=== PATIENT | female | born 1980 ===

== ENCOUNTER 2018-06-29 20:54 | Emergency (ER) | payer OTHER ==
[2018-06-29 21:05] VITALS: O2SAT 97
[2018-06-29] MEDS ORDERED: Sodium Chloride 0.9% 1,000 ML IV STA (22:06)
--- NOTE | 2018-06-29 22:07 | ED PDOC ---
HPI: General Adult <Clari Muir - Last Filed: 06/30/18 14:47> Chief Complaint (Provider): Chest Pain History Per: Patient Onset/Duration Of Symptoms: Days (since 06/17/18) Current Symptoms Are (Timing): Still Present Additional Complaint(s): 38 year old female with no past medical history presents to the ED with intermittent mid-sternal chest tightness since 06/17/18. Patient states tightness is worse at night and lasts a couple of minutes. She states she feels numbness in both hands, generalized weakness, and dizziness. Patient denies fever, cough, leg swelling, recent travel, or OCP use. PMD: Hitesh Hampton <Tahira Hansen Naveen - Last Filed: 06/30/18 17:27> Time Seen by Provider: 06/29/18 21:13 Chief Complaint (Nursing): Chest Pain Past Medical History Vital Signs: Last Vital Signs Temp 97.9 F 06/30/18 00:23 Pulse 76 06/30/18 00:23 Resp 15 06/30/18 00:23 BP 135/74 06/30/18 00:23 Pulse Ox 97 06/30/18 00:23 <Clari Muir - Last Filed: 06/30/18 14:47> Reviewed: Historical Data, Nursing Documentation, Vital Signs Vital Signs: Last Vital Signs Temp 97.8 F 06/29/18 21:02 Pulse 80 06/29/18 21:02 Resp 18 06/29/18 21:02 BP 149/80 06/29/18 21:02 Pulse Ox 97 06/29/18 21:02 Primary Care Provider: Hitesh Hampton - Medical History PMH: No Chronic Diseases - Family History Family History: States: Unknown Family Hx - Social History Current smoker - smoking cessation education provided: No Ex-Smoker (has not smoked in the last 12 months): No Alcohol: None <Tahira Hansen Naveen - Last Filed: 06/30/18 17:27> - Home Medications Home Medications: Ambulatory Orders Medication Instructions Recorded Famotidine [Pepcid] 20 mg PO BID #20 tab 06/29/18 - Allergies Allergies/Adverse Reactions: Allergies Allergy/AdvReac Type Severity Reaction Status Date / Time No Known Allergies Allergy Verified 06/29/18 22:05 Review of Systems ROS Statement: Except As Marked, All Systems Reviewed And Found Negative Cardiovascular: Positive for: Other (chest tighness) Respiratory: Negative for: Cough Musculoskeletal: Positive for: Other (no leg swelling) Neurological: Positive for: Weakness (generalized), Numbness (in both hands), Dizziness <HansenTahira davila F - Last Filed: 06/30/18 17:27> Physical Exam - Reviewed Nursing Documentation Reviewed: Yes Vital Signs Reviewed: Yes - Physical Exam Appears: Positive for: Non-toxic, No Acute Distress Head Exam: Positive for: ATRAUMATIC, NORMOCEPHALIC Skin: Positive for: Normal Color, Warm, Dry Eye Exam: Positive for: EOMI, Normal appearance, PERRL Cardiovascular/Chest: Positive for: Regular Rate, Rhythm. Negative for: Murmur Respiratory: Positive for: Normal Breath Sounds. Negative for: Respiratory Distress Gastrointestinal/Abdominal: Positive for: Normal Exam, Soft. Negative for: Tenderness Back: Positive for: Normal Inspection. Negative for: L CVA Tenderness, R CVA Tenderness Extremity: Positive for: Normal ROM (upper and lower). Negative for: Pedal Edema, Deformity Neurological/Psych: Positive for: Awake, Alert, Oriented (x3) <Tahira Hansen F - Last Filed: 06/30/18 17:27> - Laboratory Results Result Diagrams: 06/29/18 22:31 06/29/18 22:31 Lab Results: PT 12.4 Seconds (9.8-13.1) 06/29/18 22:31 INR 1.1 06/29/18 22:31 APTT 31.4 Seconds (25.6-37.1) 06/29/18 22:31 D-Dimer, Quantitative < 200 ng/mlDDU (0-230) 06/29/18 22:31 Troponin I < 0.0120 ng/mL (0.00-0.120) 06/29/18 22:31 Total Bilirubin 0.4 mg/dl (0.2-1.3) 06/29/18 22:31 AST 30 U/L (14-36) 06/29/18 22:31 ALT 34 U/L (9-52) 06/29/18 22:31 Alkaline Phosphatase 63 U/L (38-126) 06/29/18 22:31 Total Protein 7.4 G/DL (6.3-8.2) 06/29/18 22: Albumin 4.3 g/dL (3.5-5.0) 06/29/18 22: Globulin 3.1 gm/dL (2.2-3.9) 06/29/18 22: Albumin/Globulin Ratio 1.4 (1.0-2.1) 06/29/18 22: Urine Color Yellow (YELLOW) 06/29/18 22: Urine Clarity Slighty-cloudy (Clear) 06/29/18 22: Urine pH 7.0 (5.0-8.0) 06/29/18 22: Ur Specific [place] 1.018 (1.003-1.030) 06/29/18 22: Urine Protein Negative mg/dL (NEGATIVE) 06/29/18 22: Urine Glucose (UA) Neg mg/dL (NEGATIVE) 06/29/18 22: Urine Ketones Negative mg/dL (NEGATIVE) 06/29/18 22: Urine Blood Moderate (NEGATIVE) 06/29/18 22: Urine Nitrate Negative (NEGATIVE) 06/29/18 22: Urine Bilirubin Negative (NEGATIVE) 06/29/18 22: Urine Urobilinogen 0.2-1.0 mg/dL (0.2-1.0) 06/29/18 22:31 Ur Leukocyte Esterase Neg Mare/uL (Negative) 06/29/18 22:31 Urine Microscopic WBC 2 /hpf (0-5) 06/29/18 22:31 Ur Squamous Epith Cells 14 /hpf (0-5) H 06/29/18 22:31 Urine Bacteria Rare (<OCC) 06/29/18 22:31 <Clari Muir - Last Filed: 06/30/18 14:47> - Laboratory Results Result Diagrams: 06/29/18 22:31 06/29/18 22:31 - ECG Interpretation Of ECG: NSR @ 75, no ST-T changes. O2 Sat by Pulse Oximetry: 97 (RA) Pulse Ox Interpretation: Normal - Radiology X-Ray: Interpreted by Ms X-Ray Interpretation: No Acute Disease <Tahira Hansen - Last Filed: 06/30/18 17:27> Medical Decision Making Medical Decision Making: Time: 2205 Plan: --CT Head w/o contrast --EKG --CMP --Troponin --u preg --u dip --CBC --D Dimer --PTT --PT/INR --CXR --IV fluids --UA 2306 CT Head w/o contrast FINDINGS: BRAIN: No acute intraparenchymal hemorrhage. No mass lesion. No CT evidence for acute territorial infarct. No midline shift or extra-axial collections. VENTRICLES: No hydrocephalus. ORBITS: The orbits are unremarkable. SINUSES AND MASTOIDS: The paranasal sinuses and mastoid air cells are clear. BONES: No fracture. SOFT TISSUES: Unremarkable. IMPRESSION: No acute intracranial abnormality. Scribe Attestation: Documented by Yady Ambrose, acting as a scribe for Tahira Hansen MD. Provider Scribe Attestation: All medical record entries made by the Scribe were at my direction and personally dictated by me. I have reviewed the chart and agree that the record accurately reflects my personal performance of the history, physical exam, medical decision making, and the department course for this patient. I have also personally directed, reviewed, and agree with the discharge instructions and disposition. <Tahira Hansen - Last Filed: 06/30/18 17:27> Disposition <Clari Muir - Last Filed: 06/30/18 14:47> - Disposition Disposition: Routine/Home Disposition Time: 23:00 <Tahira Hansen - Last Filed: 06/30/18 17:27> - Clinical Impression Clinical Impression: Chest pain - Disposition Condition: IMPROVED Additional Instructions: FOLLOW-UP WITH PMD WITHIN 2 DAYS FOR REEVALUATION. Prescriptions: Famotidine [Pepcid] 20 mg PO BID #20 tab Instructions: Chest Pain Forms: Yoovi (Nepalese) Addendum Addendum: 06/30/18 14:47 Spoke to patient, patient will return to ED for evaluation of possible cytotoxic vs vasogenic etiology found on final CT report. Patient states she still feeling weak. Dr. hansen aware patient called back. <Clari Muir - Last Filed: 06/30/18 14:47>
[2018-06-29 22:38] LABS: BASO # 0.1 K/uL (0.0-0.2); BASO % 0.9 % (0.0-2.0); EOS # 0.2 K/uL (0.0-0.7); EOS % 2.5 % (0.0-4.0); HEMOGLOBIN 13.1 g/dL (12.0-16.0); LYMPH # 3.3 K/uL (1.0-4.3); LYMPH % 41.1 % (20.0-40.0); MEAN CELL VOLUME 91.1 fl (81.0-99.0); MEAN CORPUSCULAR HEMOGLOBIN 30.7 pg (27.0-31.0); MEAN CORPUSCULAR HGB CONC 33.7 g/dL (33.0-37.0); MEAN PLATELET VOLUME 9.2 fl (7.2-11.7); MONO # 0.6 K/uL (0.0-0.8); NEUT # 3.9 K/uL (1.8-7.0); NEUT % 48.5 % (50.0-75.0); RBC 4.26 Mil/uL (3.80-5.20); RED CELL DISTRIBUTION WIDTH 12.9 % (11.5-14.5)
[2018-06-29 22:39] LABS: SQUAMOUS EPITHIAL 14 /hpf (0-5); URINE BACTERIA RARE (<OCC); URINE BILIRUBIN NEGATIVE (NEGATIVE); URINE BLOOD MODERATE (NEGATIVE); URINE CLARITY SLIGHTY-CLOUDY (Clear); URINE COLOR YELLOW (YELLOW); URINE GLUCOSE (UA) NEG (NEGATIVE); URINE LEUKOCYTE ESTERASE NEG Leu/uL (Negative); URINE PROTEIN NEGATIVE (NEGATIVE); URINE UROBILINOGEN 0.2-1.0 mg/dL (0.2-1.0)
[2018-06-29 22:42] LABS: INR 1.1; PROTHROMBIN TIME 12.4 Seconds (9.8-13.1)
[2018-06-29 22:45] LABS: PARTIAL THROMBOPLASTIN TIME 31.4 Seconds (25.6-37.1)
[2018-06-29 22:49] LABS: ALB/GLOB RATIO 1.4 (1.0-2.1); ALBUMIN 4.3 g/dL (3.5-5.0); ALT/SGPT 34 U/L (9-52); AST/SGOT 30 U/L (14-36); BLOOD UREA NITROGEN 10 mg/dl (7-17); CALCIUM 8.8 mg/dL (8.4-10.2); GFR NON-AFRICAN AMERICAN > 60
[2018-06-29 22:53] LABS: D DIMER < 200 ng/mlDDU (0-230)
[2018-06-30 00:24] VITALS: BP 135/74; PULSE 76; RESP 15; TEMP 97.9
--- NOTE | 2018-06-30 09:01 | RAD ---
Date of service: 06/29/2018 HISTORY: CP COMPARISON: No prior. TECHNIQUE: Chest PA and lateral views FINDINGS: LUNGS: No active pulmonary disease. PLEURA: No significant pleural effusion identified. No pneumothorax apparent. CARDIOVASCULAR: No aortic atherosclerotic calcification present. Normal cardiac size. No pulmonary vascular congestion. OSSEOUS STRUCTURES: No significant abnormalities. VISUALIZED UPPER ABDOMEN: Normal. OTHER FINDINGS: None. IMPRESSION: No acute cardiopulmonary disease appreciated.
--- NOTE | 2018-06-30 11:44 | CT ---
Date of service: 06/29/2018 PROCEDURE: CT HEAD WITHOUT CONTRAST. HISTORY: Dizziness COMPARISON: None available. TECHNIQUE: Axial computed tomography images were obtained through the head/brain without intravenous contrast. Radiation dose: Total exam DLP = 797.2 mGy-cm. This CT exam was performed using one or more of the following dose reduction techniques: Automated exposure control, adjustment of the mA and/or kV according to patient size, and/or use of iterative reconstruction technique. FINDINGS: HEMORRHAGE: No intracranial hemorrhage. BRAIN: There is a lucent region at the right cerebellar hemisphere laterally measuring 1.4 x 2.0 cm without local mass effect or hemorrhage related. No additional brain parenchymal signal abnormality is appreciated. Follow-up brain MRI with and without contrast is advised for added characterization. It is unclear whether this is cytotoxic or vasogenic which generally separates differential diagnosis of ischemia versus neoplasm or infection. VENTRICLES: Unremarkable. No hydrocephalus. CALVARIUM: Unremarkable. PARANASAL SINUSES: Unremarkable as visualized. No significant inflammatory changes. MASTOID AIR CELLS: Unremarkable as visualized. No inflammatory changes. OTHER FINDINGS: None. IMPRESSION: 2.0 cm lucency right cerebral hemisphere is identified laterally which is indeterminate for cytotoxic versus vasogenic etiologies and follow-up brain MRI is advised with and without contrast for added characterization. Discordant preliminary report from [facility] report which does not describe this finding dated 06/29/2018, 11:06 p.m.. Findings discussed with Nurse Practitioner Wood with written down and read back verification 06/30/2018, 11:38 a.m..
--- NOTE | 2018-07-01 11:26 | CARD ---
APPROVED REPORT Date of service: 06/30/2018 EKG Measurement Heart [id number] <Conclusion> Sinus rhythm with 1st degree AV block Otherwise normal ECG
== END 2018-06-30 00:23 | disposition home or self-care (01) ==
LOC: H.ER 20:54
DX: R07.89 Other chest pain (principal)
CPT/HCPCS: 70450; 71046; 80053; 81003; 81025; 84484; 85025; 85378; 85610; 85730; 93005; 99284; J7030

== ENCOUNTER 2018-06-30 16:22 | Emergency (ER) | payer OTHER ==
[2018-06-30 16:29] VITALS: RESP 16
[2018-06-30 16:30] VITALS: BMI 36.0
--- NOTE | 2018-06-30 17:22 | ED PDOC ---
Syncope/Near Syncope/Dizziness Time Seen by Provider: 06/30/18 16:35 Chief Complaint (Nursing): Weakness/Neurological Deficit Chief Complaint (Provider): Dizziness History Per: Patient History/Exam Limitations: no limitations Onset/Duration Of Symptoms: Days Additional Complaint(s): 38 year old female presents to ED for dizziness and chest tightness who was evaluated in this ED yesterday for same complaints. Radiology reading of CT scan today demonstrated abnormality so MRI brain or CT scan with IV contrast recommended. Patient reports felling better today but still experiences some dizziness. PMD: none provided Past Medical History Reviewed: Historical Data, Nursing Documentation, Vital Signs Vital Signs: Last Vital Signs Temp 98.5 F 06/30/18 16:29 Pulse 80 06/30/18 16:29 Resp 16 06/30/18 16:29 BP 126/63 06/30/18 16:29 Pulse Ox 98 06/30/18 16:29 Primary Care Provider: FAMILY PROVIDER,NO - Medical History PMH: No Chronic Diseases - Surgical History Surgical History: No Surg Hx - Family History Family History: States: Unknown Family Hx - Social History Current smoker - smoking cessation education provided: No Alcohol: None Drugs: Denies - Home Medications Home Medications: Ambulatory Orders Medication Instructions Recorded Famotidine [Pepcid] 20 mg PO BID #20 tab 06/29/18 Aspirin 325 mg PO DAILY tab 07/01/18 - Allergies Allergies/Adverse Reactions: Allergies Allergy/AdvReac Type Severity Reaction Status Date / Time Penicillins Allergy ITCHING Verified 07/01/18 18:44 codeine AdvReac FATIGUE Verified 07/01/18 18:44 Review of Systems Cardiovascular: Positive for: Other (chest tightness) Neurological: Positive for: Dizziness Physical Exam - Reviewed Nursing Documentation Reviewed: Yes Vital Signs Reviewed: Yes - Physical Exam Appears: Positive for: No Acute Distress Head Exam: Positive for: ATRAUMATIC, NORMAL INSPECTION, NORMOCEPHALIC Skin: Positive for: Normal Color, Warm, Dry Eye Exam: Positive for: EOMI, Normal appearance, PERRL ENT: Positive for: Normal ENT Inspection Neck: Positive for: Normal, Painless ROM, Supple Cardiovascular/Chest: Positive for: Regular Rate, Rhythm. Negative for: Murmur Respiratory: Positive for: Normal Breath Sounds. Negative for: Respiratory Distress Gastrointestinal/Abdominal: Positive for: Normal Exam, Soft. Negative for: Tenderness Back: Positive for: Normal Inspection. Negative for: L CVA Tenderness, R CVA Tenderness, Vertebral Tenderness Extremity: Positive for: Normal ROM. Negative for: Tenderness, Deformity Neurological/Psych: Positive for: Awake, Alert, Normal Tone, Oriented (x3). Negative for: Motor/Sensory Deficits - ECG O2 Sat by Pulse Oximetry: 98 (RA) Pulse Ox Interpretation: Normal Medical Decision Making Medical Decision Making: Time: 1713 Initial Impression: Initial Plan: --CT Head --Labs --EKG 1911 CT Head FINDINGS: BRAIN No acute intraparenchymal hemorrhage. No mass lesion. No abnormal enhancement. No CT evidence for acute territorial infarct. No midline shift or extra-axial collections. VENTRICLES: No hydrocephalus. ORBITS: The orbits are unremarkable. SINUSES AND MASTOIDS: The paranasal sinuses and mastoid air cells are clear. BONES: No fracture. IMPRESSION: No acute intracranial abnormality. Scribe Attestation: Documented by Good Roberto acting as a scribe for Tahira Hansen MD. Provider Scribe Attestation: All medical record entries made by the Scribe were at my direction and personally dictated by me. I have reviewed the chart and agree that the record accurately reflects my personal performance of the history, physical exam, medical decision making, and the department course for this patient. I have also personally directed, reviewed, and agree with the discharge instructions and disposition. Disposition - Clinical Impression Clinical Impression: Dizziness - Disposition Disposition: Routine/Home Disposition Time: 19:20 Condition: GOOD Additional Instructions: FOLLOW-UP WITH PMD WITHIN 2 DAYS FOR REEVALUATION. Instructions: Dizziness, Nonvertigo, (DC) Forms: [employer]listen (Maldivian)
[2018-06-30] MEDS ORDERED: Sodium Chloride 0.9% 50 ML IV ONE (17:54)
[2018-06-30] MEDS ORDERED: Iohexol 300 100 ML IJ ONE (17:54)
[2018-06-30 19:52] VITALS: BP 137/82; PULSE 73; TEMP 98.2
--- NOTE | 2018-07-01 10:19 | CT ---
Date of service: 06/30/2018 PROCEDURE: CT HEAD WITH CONTRAST HISTORY: Abnormal CT head without contrast COMPARISON: None available. TECHNIQUE: Axial computed tomography images were obtained through the head/brain with intravenous contrast. Contrast dose: Omnipaque 300, 95 cc Radiation dose: Total exam DLP = 887.92 mGy-cm. This CT exam was performed using one or more of the following dose reduction techniques: Automated exposure control, adjustment of the mA and/or kV according to patient size, and/or use of iterative reconstruction technique. FINDINGS: HEMORRHAGE: No intracranial hemorrhage. BRAIN: The prior lucency is reiterated at the upper right cerebellum laterally, measuring 1.9 x 1.5 x 1.8 cm (transverse x anteroposterior x superoinferior dimensions). No definitive enhancement is seen within this lucency although vessels at the right side of the tentorium enhanced immediately cephalad to it. Again, no mass effect is exerted and this may reflect an the low-density primary brain tumor though an infectious or inflammatory etiology is not excluded. Infarction is difficult to exclude as well on an acute or subacute basis. Follow-up brain MRI is advised when feasible. No definite abnormal intracranial enhancement appreciated. VENTRICLES: Unremarkable. No hydrocephalus. CALVARIUM: Unremarkable. PARANASAL SINUSES: Unremarkable as visualized. No significant inflammatory changes. MASTOID AIR CELLS: Unremarkable as visualized. No mastoid effusion. OTHER FINDINGS: None. IMPRESSION: Nonenhancing but persistent low-density lesion at the right cerebellum is stable at 1.9 cm greatest dimension. Differential diagnosis is discussed above and is broad and includes both vasogenic and cytotoxic etiologies and follow-up brain MRI with and without contrast is advised when feasible. Discordant with preliminary report from [facility] which does not describe lesion. Preliminary report provided by [facility], 06/30/2018, 7:12 p.m.. Findings discussed with CRISTELA Mo with written down and read back verification 07/01/2018, 10:10 a.m..
--- NOTE | 2018-07-01 11:28 | CARD ---
APPROVED REPORT Date of service: 06/29/2018 EKG Measurement Heart [id number] <Conclusion> Normal sinus rhythm Normal ECG
[2018-07-02 08:35] VITALS: O2SAT 98
== END 2018-06-30 19:44 | disposition home or self-care (01) ==
LOC: H.ER 16:22
DX: R42 Dizziness and giddiness (principal)
CPT/HCPCS: 70460; 81025; 84484; 93005; 99285; Q9967

== ENCOUNTER 2018-07-01 12:40 | Observation (INO) | payer OTHER ==
[2018-07-01 12:44] VITALS: BMI 35.6
[2018-07-01 13:52] LABS: BASO # 0.1 K/uL (0.0-0.2); BASO % 0.6 % (0.0-2.0); EOS # 0.2 K/uL (0.0-0.7); EOS % 1.7 % (0.0-4.0); HEMOGLOBIN 13.9 g/dL (12.0-16.0); LYMPH # 2.4 K/uL (1.0-4.3); LYMPH % 25.4 % (20.0-40.0); MEAN CELL VOLUME 91.1 fl (81.0-99.0); MEAN CORPUSCULAR HEMOGLOBIN 30.5 pg (27.0-31.0); MEAN CORPUSCULAR HGB CONC 33.5 g/dL (33.0-37.0); MEAN PLATELET VOLUME 9.2 fl (7.2-11.7); MONO # 0.5 K/uL (0.0-0.8); MONO % 5.6 % (0.0-10.0); NEUT # 6.3 K/uL (1.8-7.0); NEUT % 66.7 % (50.0-75.0); RBC 4.54 Mil/uL (3.80-5.20); WHITE BLOOD COUNT 9.4 K/uL (4.8-10.8)
[2018-07-01 14:13] LABS: BLOOD UREA NITROGEN 9 mg/dl (7-17); GFR NON-AFRICAN AMERICAN > 60
--- NOTE | 2018-07-01 14:19 | ED PDOC ---
HPI: Chest Pain Time Seen by Provider: 07/01/18 12:48 Chief Complaint (Nursing): Chest Pain Chief Complaint (Provider): chest pain History Per: Patient History/Exam Limitations: no limitations Onset/Duration Of Symptoms: Days (4x) Current Symptoms Are (Timing): Still Present Severity: Moderate Additional Complaint(s): 38 year old female with no pertinent past medical history presents to the ED for an evaluation of chest pain and dizziness that has been coming and going for the past 4x days. Patient was seen in the ED 2x other times for the same complaint. Patient presented to the ED on her first visit on 06/29/2018 with complaints of chest pain and dizziness, had a cardiac workup and CT head which was normal, and was called back the next day for abnormal findings on the final read of the CT head. Patient returned to the ED on 06/30/2018 and had a second CT head with IV contrast, which was read and normal, and was called back this morning because there were abnormal findings on the final read again. Patient presents to the ED today for a possible MRI (brain) and admission. Patient reports that the chest pain still comes and goes, and is not present at this time. Patient states that she feels dizziness when getting up and walking. Patient denies having syncopal episodes, difficulty breathing, leg swelling, or using control. PMD: Hitesh Hampton MD Past Medical History Reviewed: Historical Data, Nursing Documentation, Vital Signs Vital Signs: Last Vital Signs Temp 98.8 F 07/01/18 12:44 Pulse 94 H 07/01/18 12:44 Resp 18 07/01/18 12:44 BP 126/85 07/01/18 12:44 Pulse Ox 100 07/01/18 12:44 JENNIFER Report Viewed: Yes Primary Care Provider: Hitesh Hampton - Medical History PMH: No Chronic Diseases - Surgical History Surgical History: No Surg Hx - Family History Family History: States: No Known Family Hx - Social History Current smoker - smoking cessation education provided: No Alcohol: None Drugs: Denies - Immunization History Hx Tetanus Toxoid Vaccination: No Hx Influenza Vaccination: No Hx Pneumococcal Vaccination: No - Home Medications Home Medications: Ambulatory Orders Medication Instructions Recorded Famotidine [Pepcid] 20 mg PO BID #20 tab 06/29/18 - Allergies Allergies/Adverse Reactions: Allergies Allergy/AdvReac Type Severity Reaction Status Date / Time No Known Allergies Allergy Verified 07/01/18 12:48 Review of Systems ROS Statement: Except As Marked, All Systems Reviewed And Found Negative Cardiovascular: Positive for: Chest Pain (comes and goes, not present at this time) Respiratory: Negative for: Shortness of Breath Musculoskeletal: Negative for: Other (leg swelling) Neurological: Positive for: Dizziness (when getting up and walking). Negative for: Other (syncope) Physical Exam - Reviewed Nursing Documentation Reviewed: Yes Vital Signs Reviewed: Yes - Physical Exam Appears: Positive for: Well, Non-toxic, No Acute Distress Head Exam: Positive for: ATRAUMATIC, NORMOCEPHALIC Skin: Positive for: Normal Color, Warm, Dry Eye Exam: Positive for: Normal appearance Neck: Positive for: Normal, Painless ROM, Supple Cardiovascular/Chest: Positive for: Regular Rate, Rhythm Respiratory: Positive for: Normal Breath Sounds Extremity: Positive for: Normal ROM. Negative for: Pedal Edema, Swelling Neurological/Psych: Positive for: Awake, Alert, Symmetric/Intact Strength, Oriented (3x), Cerebellar Tests (normal), environmental adviser II-XII (intact). Negative for: Motor/Sensory Deficits - Laboratory Results Result Diagrams: 07/01/18 13:49 07/01/18 13:49 - ECG O2 Sat by Pulse Oximetry: 100 (RA) Pulse Ox Interpretation: Normal Medical Decision Making Medical Decision Makin:14 07/01/2018 CT head read and reviewed by radiologist FINDINGS: HEMORRHAGE: No intracranial hemorrhage. BRAIN: The prior lucency is reiterated at the upper right cerebellum laterally, measuring 1.9 x 1.5 x 1.8 cm (transverse x anteroposterior x superoinferior dimensions). No definitive enhancement is seen within this lucency although vessels at the right side of the tentorium enhanced immediately cephalad to it. Again, no mass effect is exerted and this may reflect an the low-density primary brain tumor though an infectious or inflammatory etiology is not excluded. Infarction is difficult to exclude as well on an acute or subacute basis. Follow-up brain MRI is advised when feasible. No definite abnormal intracranial enhancement appreciated. VENTRICLES: Unremarkable. No hydrocephalus. CALVARIUM: Unremarkable. PARANASAL SINUSES: Unremarkable as visualized. No significant inflammatory changes. MASTOID AIR CELLS: Unremarkable as visualized. No mastoid effusion. OTHER FINDINGS: None. IMPRESSION: Nonenhancing but persistent low-density lesion at the right cerebellum is stable at 1.9 cm greatest dimension. Differential diagnosis is discussed above and is broad and includes both vasogenic and cytotoxic etiologies and follow-up brain MRI with and without contrast is advised when feasible. Discordant with preliminary report from [facility] which does not describe lesion. Preliminary report provided by [facility], 06/30/2018, 7:12 p.m.. Findings discussed with CRISTELA oM with written down and read back verification 07/01/2018, 10:10 a.m.. 12:48 Initial impression: 38 year old female with chest pain and dizziness, and abnormal findings in the final read of CT head. CT head findings reviewed by me. Patient to be admitted to hospital for cardiac monitoring and neurology workup including MRI and neurology consults. Differential diagnoses include, but are not limited to brain mass, CVA, multiple sclerosis, and pulmonary embolism. Initial plan: * EKG * CT angio chest * MRI brain with and without contrast * BMP * troponin I * CBC with differential * ortho bp * reevaluation 15:20 FINDINGS: PULMONARY ARTERIES: Unremarkable. No pulmonary embolism. AORTA: No acute findings. No thoracic aortic aneurysm. No aortic atherosclerotic calcification or mural plaque present. LUNGS: No pulmonary consolidation or central airway lesion. 4.5 mm noncalcified subpleural nodule is identified at the lingula in image 60 series 4 with a 4.0 mm nodule more anterior inferiorly in image 66, also subpleural. PLEURAL SPACES: Unremarkable. No effusion or pneumothorax. HEART: Borderline cardiomegaly. No pericardial effusion. No gross dilatation of the right lateral ventricle or the main pulmonary artery. No definite pulmonary vascular congestion appreciable. LYMPH NODES: No lymphadenopathy. BONES, CHEST WALL: Unremarkable. No fracture or destructive lesion OTHER FINDINGS: Sludge is identified in the dependent gallbladder incidentally. IMPRESSION: 1. No CT evidence of pulmonary embolus. 2. No infiltrate, pneumothorax or central airway mass. No pleural or pericardial effusion. Borderline cardiomegaly is noted however. 3. 2 tiny subpleural nodules are identified at the lateral lingula pleura approaching the left base. Follow-up low-dose chest CT is advised in 1 year to demonstrate stability. [facility] 2. ------ Scribe Attestation: Documented by Dinorah Valdez, acting as a scribe for Soraida Calero MD. Provider Scribe Attestation: All medical record entries made by the Scribe were at my direction and personal ly dictated by me. I have reviewed the chart and agree that the record accurately reflects my personal performance of the history, physical exam, medical decision making, and the department course for this patient. I have also personally directed, reviewed, and agree with the discharge instructions and disposition. Disposition - Disposition
[2018-07-01] MEDS ORDERED: Iodixanol 320 MG/ML 100 ML BOTTLE IV ONE (14:28)
[2018-07-01] MEDS ORDERED: Sodium Chloride 0.9% 100 ML ONE (14:28)
--- NOTE | 2018-07-01 15:26 | CT ---
Date of service: 07/01/2018 PROCEDURE: CT Chest with contrast (Pulmonary Angiogram) HISTORY: chest pain COMPARISON: None available. TECHNIQUE: Axial computed tomography images were obtained of the chest in the pulmonary arterial phase of enhancement. Coronal and sagittal reformatted images were created and reviewed. Intravenous contrast dose: Visipaque 320, 98 cc Radiation dose: Total exam DLP = 355.73 mGy-cm. This CT exam was performed using one or more of the following dose reduction techniques: Automated exposure control, adjustment of the mA and/or kV according to patient size, and/or use of iterative reconstruction technique. FINDINGS: PULMONARY ARTERIES: Unremarkable. No pulmonary embolism. AORTA: No acute findings. No thoracic aortic aneurysm. No aortic atherosclerotic calcification or mural plaque present. LUNGS: No pulmonary consolidation or central airway lesion. 4.5 mm noncalcified subpleural nodule is identified at the lingula in image 60 series 4 with a 4.0 mm nodule more anterior inferiorly in image 66, also subpleural. PLEURAL SPACES: Unremarkable. No effusion or pneumothorax. HEART: Borderline cardiomegaly. No pericardial effusion. No gross dilatation of the right lateral ventricle or the main pulmonary artery. No definite pulmonary vascular congestion appreciable. LYMPH NODES: No lymphadenopathy. BONES, CHEST WALL: Unremarkable. No fracture or destructive lesion OTHER FINDINGS: Sludge is identified in the dependent gallbladder incidentally. IMPRESSION: 1. No CT evidence of pulmonary embolus. 2. No infiltrate, pneumothorax or central airway mass. No pleural or pericardial effusion. Borderline cardiomegaly is noted however. 3. 2 tiny subpleural nodules are identified at the lateral lingula pleura approaching the left base. Follow-up low-dose chest CT is advised in 1 year to demonstrate stability. [facility] 2.
--- NOTE | 2018-07-01 21:24 | CARD ---
APPROVED REPORT Date of service: 07/01/2018 EKG Measurement Heart [id number] <Conclusion> Normal sinus rhythm Normal ECG
[2018-07-02 06:25] LABS: T3 1.39 nmol/L (1.49-2.60)
[2018-07-02 07:19] LABS: LDL CHOLESTEROL 152 mg/dL (0-129)
[2018-07-02 07:24] LABS: ALB/GLOB RATIO 1.4 (1.0-2.1); ALBUMIN 4.1 g/dL (3.5-5.0); ALT/SGPT 25 U/L (9-52); AST/SGOT 22 U/L (14-36); BLOOD UREA NITROGEN 16 mg/dl (7-17); CALCIUM 8.9 mg/dL (8.4-10.2); GFR NON-AFRICAN AMERICAN > 60; HDL CHOLESTEROL 34 MG/DL (30-70)
[2018-07-02 07:41] LABS: BASO # 0.1 K/uL (0.0-0.2); BASO % 0.9 % (0.0-2.0); EOS # 0.3 K/uL (0.0-0.7); EOS % 3.4 % (0.0-4.0); HEMOGLOBIN 13.2 g/dL (12.0-16.0); LYMPH # 3.3 K/uL (1.0-4.3); LYMPH % 37.8 % (20.0-40.0); MEAN CELL VOLUME 92.2 fl (81.0-99.0); MEAN CORPUSCULAR HEMOGLOBIN 30.4 pg (27.0-31.0); MEAN PLATELET VOLUME 9.6 fl (7.2-11.7); MONO # 0.6 K/uL (0.0-0.8); MONO % 7.2 % (0.0-10.0); NEUT # 4.4 K/uL (1.8-7.0); NEUT % 50.7 % (50.0-75.0); NRBC % 0.1 % (0.0-0.0); RBC 4.35 Mil/uL (3.80-5.20); RED CELL DISTRIBUTION WIDTH 13.3 % (11.5-14.5); WHITE BLOOD COUNT 8.7 K/uL (4.8-10.8)
--- NOTE | 2018-07-02 09:19 | CP.PCM.CON ---
History of Present Illness - History of Present Illness History of Present Illness: Yoselin Mojica, PGY1 Consult Note for Dr. Aguillon: CC: Chest pain and dizziness Consulted for: Eval of chest pain Pt is a 38 yo F with no significant pmhx who presents to the [facility] ED for chest pain and dizziness. Cardio team is consulted for the evaluation of the pts chest pain. Pt states that she has been noting on and off chest pain for the past 3-4 days. Pt reports she came in for dizziness and chest pain earlier in the week and was told to return due to abnormal results on CT of head. Pt states that she has a hx of having similar chest pain in times of stress. Pt describes the chest pain as starting mid-clavicular line on R and L side of chest and then radiating inwards to the midsternal area. Pt reports that this pain is not related to exertion and there is no other radiation of the pain to her shoulder, neck, jaw or back. She states that traditionally when the pain comes about she attempts to calm down which usually does help to resolve the pain. Pt denies any diaphoresis and describes the pain as tight in nature. Pt at this time denies any fevers, chills, lightheadedness, SOB, cough, chest pain, palpitations, LE swelling, abd pain, n/v, c/d or dysuria. Pt also denies any family hx of premature cardiac and has both parents who are diagnosed with HTN. Pt is a non-smoker and has regular menses. Review of Systems - Review of Systems Review of Systems: 12 point ROS reviewed and negative except noted in HPI above. Past Patient History - Past Medical History & Family History Past Medical History?: No - Past Social History Smoking Status: Never Smoked - HEMATOLOGICAL/ONCOLOGICAL Hx AIDS: No Hx Human Immunodeficiency Virus (HIV): No - MUSCULOSKELETAL/RHEUMATOLOGICAL Hx Falls: No - PSYCHIATRIC Hx Substance Use: No - ANESTHESIA Hx Anesthesia: No Meds Home Medications: Home Medication List Medication Instructions Recorded Confirmed Type Aspirin 325 mg PO DAILY tab 07/01/18 Rx Allergies/Adverse Reactions: Allergies Allergy/AdvReac Type Severity Reaction Status Date / Time Penicillins Allergy ITCHING Verified 07/01/18 18:44 codeine AdvReac FATIGUE Verified 07/01/18 18:44 - Medications Medications: Current Medications Aspirin (Aspirin) 325 mg PO DAILY [facility] Last Admin: 07/01/18 18:45 Dose: 325 mg Enoxaparin Sodium (Lovenox) 40 mg SC DAILY [facility]; Protocol Famotidine (Pepcid) 20 mg PO BID [facility] Last Admin: 07/01/18 18:46 Dose: 20 mg Ibuprofen (Motrin Tab) 600 mg PO Q8 PRN PRN Reason: Headache Last Admin: 07/01/18 21:39 Dose: 600 mg Physical Exam - Constitutional Appears: Non-toxic, No Acute Distress - Head Exam Head Exam: ATRAUMATIC, NORMAL INSPECTION, NORMOCEPHALIC - Eye Exam Eye Exam: EOMI, Normal appearance, PERRL - Respiratory Exam Respiratory Exam: Clear to Auscultation Bilateral, NORMAL BREATHING PATTERN. absent: Accessory Muscle Use, Rales, Rhonchi, Wheezes, Respiratory Distress, Stridor - Cardiovascular Exam Cardiovascular Exam: RRR, +S1, +S2. absent: Gallop, Rubs - GI/Abdominal Exam GI & Abdominal Exam: Normal Bowel Sounds, Soft. absent: Distended, Firm, Guarding, Tenderness - Extremities Exam Extremities exam: Positive for: normal capillary refill, normal inspection, ped al pulses present. Negative for: calf tenderness, pedal edema - Back Exam Back exam: NORMAL INSPECTION. absent: CVA tenderness (L), CVA tenderness (R) - Neurological Exam Neurological exam: Alert, Oriented x3 - Psychiatric Exam Psychiatric exam: Normal Affect, Normal Mood - Skin Skin Exam: Dry, Intact, Normal Color Results - Vital Signs Recent Vital Signs: Last Vital Signs Temp 97.8 F 07/02/18 08:17 Pulse 83 07/02/18 08:17 Resp 20 07/02/18 08:17 BP 136/82 07/02/18 08:17 Pulse Ox 99 07/02/18 08:17 - Labs Result Diagrams: 07/02/18 07:00 07/02/18 05:15 Labs: Laboratory Results - last 24 hr 07/01/18 07/01/18 07/02/18 13:49 13:49 05:15 WBC 9.4 RBC 4.54 Hgb 13.9 Hct 41.3 MCV 91.1 MCH 30.5 MCHC 33.5 RDW 13.0 Plt Count 314 MPV 9.2 Neut % (Auto) 66.7 Lymph % (Auto) 25.4 [place] % (Auto) 5.6 Eos % (Auto) 1.7 Baso % (Auto) 0.6 Neut # (Auto) 6.3 Lymph # (Auto) 2.4 [place] # (Auto) 0.5 Eos # (Auto) 0.2 Baso # (Auto) 0.1 Sodium 137 136 Potassium 4.5 4.5 Chloride 103 102 Carbon Dioxide 27 25 Anion Gap 12 14 BUN 9 16 Creatinine 0.5 L 0.7 Est GFR ( Amer) > 60 > 60 Est GFR (Non-Af Amer) > 60 > 60 Random Glucose 87 82 Calcium 9.0 8.9 Total Bilirubin 0.2 AST 22 ALT 25 Alkaline Phosphatase 67 Troponin I < 0.0120 Total Protein 7.1 Albumin 4.1 Globulin 3.0 Albumin/Globulin Ratio 1.4 Triglycerides 151 H Cholesterol 205 H LDL Cholesterol Direct 152 H HDL Cholesterol 34 Vitamin B12 299 Thyroxine (T4) 9.22 Total T3 1.39 L TSH 3rd Generation 2.56 07/02/18 07:00 WBC 8.7 RBC 4.35 Hgb 13.2 Hct 40.1 MCV 92.2 MCH 30.4 MCHC 33.0 RDW 13.3 Plt Count 301 MPV 9.6 Neut % (Auto) 50.7 Lymph % (Auto) 37.8 [place] % (Auto) 7.2 Eos % (Auto) 3.4 Baso % (Auto) 0.9 Neut # (Auto) 4.4 Lymph # (Auto) 3.3 [place] # (Auto) 0.6 Eos # (Auto) 0.3 Baso # (Auto) 0.1 Sodium Potassium Chloride Carbon Dioxide Anion Gap BUN Creatinine Est GFR ( Amer) Est GFR (Non-Af Amer) Random Glucose Calcium Total Bilirubin AST ALT Alkaline Phosphatase Troponin I Total Protein Albumin Globulin Albumin/Globulin Ratio Triglycerides Cholesterol LDL Cholesterol Direct HDL Cholesterol Vitamin B12 Thyroxine (T4) Total T3 TSH 3rd Generation Assessment & Plan - Assessment and Plan (Free Text) Assessment: Pt is a 38 yo F with no significant Pmhx who presented for dizziness and chest pain. Cardiac team is consulted for the eval of chest pain. Plan: Non-Anginal Chest pain: - Pts CP is non-exertional, and is relieved by removal from stressful situations. Per rachelle yan this CP is non-anginal - Given the pts young age and negative family hx of premature cardiac events, as well as normal menses and no smoking hx pt is currently at low risk for cardiac events - Pts latest lipid panel is significant for CHol of 205, LDL of 152 and HDL of 34 - Pt is asymptomatic at this time.
[2018-07-02] MEDS ORDERED: Gadodiamide 287 MG/ML VIAL (15ML) IV ONE (09:59)
[2018-07-02] MEDS: Enoxaparin 40 mg Syringe SC SCH (12:13)
--- NOTE | 2018-07-02 13:32 | MRI ---
Date of service: 07/02/2018 PROCEDURE: MRI BRAIN WITH AND WITHOUT CONTRAST HISTORY: dizziness abnormal CT head COMPARISON: None available. TECHNIQUE: Multiplanar, multisequence MR images of the brain were obtained with and without intravenous contrast enhancement. FINDINGS: HEMORRHAGE: None DWI: No evidence of an acute or early subacute infarction. BRAIN PARENCHYMA: There is a hypointense T1 and hyperintense T2 lesion identified at the superior margins of the right cerebellar hemisphere corresponding to low-density lesion in prior head CT examinations from 06/30/2018. Head measures 2.0 x 1.9 x 0.9 cm (transverse x anteroposterior x superoinferior dimensions). No associated restricted diffusion. There are a few punctate long TR hyperintensities identified in the subcortical white matter of the bilateral frontal lobes with no additional is identified abnormality appreciated throughout the remaining brain parenchyma above or below the tentorium including the brainstem. No significant mass effect is exerted by this small right cerebellar lesion. This may represent a low grade brain neoplasm. Although the corpus callosum appears normal in intrinsic signal, consider possible tumefactive demyelination. This does not appear to be associated with the tentorium and atypical meningioma is not favored. Was also no enhancement identified in prior CT head with contrast. Follow-up brain MRI with contrast is advised for additional characterization. ENHANCEMENT: No abnormal intracranial enhancement. VENTRICLES: Unremarkable. No hydrocephalus. CRANIUM: Unremarkable. ORBITS: Grossly unremarkable. PARANASAL SINUSES/MASTOIDS: Clear VASCULAR SYSTEM: Skull base flow voids intact. OTHER FINDINGS: None . 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 There are additional punctate long TR hyperintensities scattered infrequently at the bilateral frontal lobes with remaining white matter normal in signal throughout the brain otherwise. Consider potential tumefactive demyelination as the differential diagnosis.
[2018-07-02 16:05] VITALS: RESP 18
--- NOTE | 2018-07-02 16:19 | CP.PCM.PCO ---
Physician Communication Note - Physician Communication Note Physician Communication Note: Review of MRI brain with and without contrst Addendum Addendum: After review of the MRI with Dr. Fajardo and considering the differential in this case, a consult to neurosurgery for further management is recommended. There is no significant edema or mass effect. The location makes it unlikely to be demyelination. A neoplasm appears to be more likely.
[2018-07-03 04:37] VITALS: O2SAT 98
[2018-07-03 05:55] LABS: HEMOGLOBIN 13.2 g/dL (12.0-16.0); MEAN CELL VOLUME 91.2 fl (81.0-99.0); MEAN CORPUSCULAR HEMOGLOBIN 30.4 pg (27.0-31.0); MEAN CORPUSCULAR HGB CONC 33.4 g/dL (33.0-37.0); RBC 4.34 Mil/uL (3.80-5.20); RED CELL DISTRIBUTION WIDTH 13.2 % (11.5-14.5); WHITE BLOOD COUNT 8.1 K/uL (4.8-10.8)
[2018-07-03 06:08] LABS: ALB/GLOB RATIO 1.3 (1.0-2.1); ALT/SGPT 27 U/L (9-52); AST/SGOT 20 U/L (14-36); BLOOD UREA NITROGEN 11 mg/dl (7-17); CALCIUM 8.9 mg/dL (8.4-10.2); GFR NON-AFRICAN AMERICAN > 60
--- NOTE | 2018-07-03 07:22 | CP.PCM.HP ---
Past Patient History - Past Medical History & Family History Past Medical History?: No - Past Social History Smoking Status: Never Smoked - HEMATOLOGICAL/ONCOLOGICAL Hx AIDS: No Hx Human Immunodeficiency Virus (HIV): No - MUSCULOSKELETAL/RHEUMATOLOGICAL Hx Falls: No - PSYCHIATRIC Hx Substance Use: No - ANESTHESIA Hx Anesthesia: No Meds Home Medications: Home Medication List Medication Instructions Recorded Confirmed Type Aspirin 325 mg PO DAILY tab 07/01/18 Rx Allergies/Adverse Reactions: Allergies Allergy/AdvReac Type Severity Reaction Status Date / Time Penicillins Allergy ITCHING Verified 07/01/18 18:44 codeine AdvReac FATIGUE Verified 07/01/18 18:44 Results - Vital Signs Recent Vital Signs: Last Vital Signs Temp 98.1 F 07/03/18 04:36 Pulse 79 07/03/18 04:36 Resp 18 07/03/18 04:36 BP 108/73 07/03/18 04:36 Pulse Ox 98 07/03/18 04:36 - Labs Result Diagrams: 07/03/18 04:20 07/03/18 04:20 Labs: Laboratory Results - last 24 hr 07/02/18 07/02/18 07/02/18 05:15 05:15 07:00 WBC 8.7 RBC 4.35 Hgb 13.2 Hct 40.1 MCV 92.2 MCH 30.4 MCHC 33.0 RDW 13.3 Plt Count 301 MPV 9.6 Neut % (Auto) 50.7 Lymph % (Auto) 37.8 [place] % (Auto) 7.2 Eos % (Auto) 3.4 Baso % (Auto) 0.9 Neut # (Auto) 4.4 Lymph # (Auto) 3.3 [place] # (Auto) 0.6 Eos # (Auto) 0.3 Baso # (Auto) 0.1 Sodium 136 Potassium 4.5 Chloride 102 Carbon Dioxide 25 Anion Gap 14 BUN 16 Creatinine 0.7 Est GFR ( Amer) > 60 Est GFR (Non-Af Amer) > 60 Random Glucose 82 Hemoglobin A1c 5.8 Calcium 8.9 Total Bilirubin 0.2 AST 22 ALT 25 Alkaline Phosphatase 67 Troponin I Total Protein 7.1 Albumin 4.1 Globulin 3.0 Albumin/Globulin Ratio 1.4 Triglycerides 151 H Cholesterol 205 H HDL Cholesterol 34 07/02/18 07/02/18 07/03/18 11:10 19:05 04:20 WBC 8.1 RBC 4.34 Hgb 13.2 Hct 39.6 MCV 91.2 MCH 30.4 MCHC 33.4 RDW 13.2 Plt Count 319 MPV Neut % (Auto) Lymph % (Auto) [place] % (Auto) Eos % (Auto) Baso % (Auto) Neut # (Auto) Lymph # (Auto) [place] # (Auto) Eos # (Auto) Baso # (Auto) Sodium Potassium Chloride Carbon Dioxide Anion Gap BUN Creatinine Est GFR ( Amer) Est GFR (Non-Af Amer) Random Glucose Hemoglobin A1c Calcium Total Bilirubin AST ALT Alkaline Phosphatase Troponin I < 0.0120 < 0.0120 Total Protein Albumin Globulin Albumin/Globulin Ratio Triglycerides Cholesterol HDL Cholesterol 07/03/18 04:20 WBC RBC Hgb Hct MCV MCH MCHC RDW Plt Count MPV Neut % (Auto) Lymph % (Auto) [place] % (Auto) Eos % (Auto) Baso % (Auto) Neut # (Auto) Lymph # (Auto) [place] # (Auto) Eos # (Auto) Baso # (Auto) Sodium 137 Potassium 4.2 Chloride 102 Carbon Dioxide 25 Anion Gap 14 BUN 11 Creatinine 0.6 L Est GFR ( Amer) > 60 Est GFR (Non-Af Amer) > 60 Random Glucose 87 Hemoglobin A1c Calcium 8.9 Total Bilirubin 0.2 AST 20 ALT 27 Alkaline Phosphatase 63 Troponin I Total Protein 7.1 Albumin 4.0 Globulin 3.1 Albumin/Globulin Ratio 1.3 Triglycerides Cholesterol HDL Cholesterol
[2018-07-03] MEDS: Enoxaparin 40 mg Syringe SC SCH ×2 (08:18→08:22)
--- NOTE | 2018-07-03 08:33 | HP ---
CHIEF COMPLAINT: Chest pain and headache. HISTORY OF PRESENT ILLNESS: This is a 38-year-old female who had multiple emergency room visits in the last couple of days for headache and today the patient also had chest pain, so the patient was brought to the emergency room and was admitted for further management. Previous visits in the emergency detected some abnormality on CAT scan. The patient was admitted for further management. REVIEW OF SYSTEMS: Positive for headache and chest pain. Review of system otherwise is negative for dizziness, syncope, loss of consciousness, nausea, vomiting, diarrhea, and constipation. No new joint or extremity pain or any shortness of breath. Review of systems of all other organ systems is unremarkable. PAST MEDICAL HISTORY: Unremarkable. PAST SURGICAL HISTORY: Unremarkable. PERSONAL HISTORY: The patient is currently a nonsmoker, nondrinker, no substance abuse. MEDICATIONS: The patient is only taking famotidine twice a day p.r.n. ALLERGIES: SHE IS NOT ALLERGIC TO ANY MEDICATIONS. FAMILY HISTORY: Noncontributory. PHYSICAL EXAMINATION: GENERAL: Well built, well nourished, moderately obese young female, in no acute distress. VITAL SIGNS: Temperature 97.3, pulse 83, respirations 20, blood pressure 136/82, saturation 100%. HEART: S1 and S2 normal, regular. LUNGS: Good bilateral air exchange. ABDOMEN: Soft and nontender. EXTREMITIES: No edema, no calf swelling, no tenderness. No acute ischemia. CENTRAL NERVOUS SYSTEM: Awake, alert, oriented and there is no evidence of any acute gross focal motor or sensory neurological deficits. DIAGNOSTIC DATA: Available diagnostic data reviewed. Telemetry monitoring does not show significant arrhythmias. WBC 8.7. Hemoglobin 13.2, hematocrit 40.1, platelets 301. Chemistries unremarkable. Cholesterol level is 205. Vitamin B12 level is low at 299. CAT scan of the chest does not reveal any acute findings. EKG does not reveal any acute ST-T changes. Troponin level is negative. PLAN: As ordered. Chirag Ansari MD
--- NOTE | 2018-07-03 10:29 | CP.PCM.PN ---
<Avel Dixon - Last Filed: 07/03/18 10:37> Subjective - Date & Time of Evaluation Date of Evaluation: 07/03/18 Time of Evaluation: 07:01 - Subjective Subjective: Patient seen and examine this morning at bedside with Dr Ansari Patient reports feeling better, no chest pain or headaches reported Pending neurosurgery eval Objective - Vital Signs/Intake and Output Vital Signs (last 24 hours): Temp Pulse Resp BP Pulse Ox 98.1 F 84 18 124/85 98 07/03/18 07:55 07/03/18 07:55 07/03/18 07:55 07/03/18 07:55 07/03/18 07:55 - Medications Medications: Current Medications Aspirin (Aspirin) 325 mg PO DAILY [facility] Last Admin: 07/03/18 08:20 Dose: 325 mg Enoxaparin Sodium (Lovenox) 40 mg SC DAILY [facility]; Protocol Last Admin: 07/03/18 08:22 Dose: Not Given Famotidine (Pepcid) 20 mg PO BID [facility] Last Admin: 07/03/18 08:18 Dose: 20 mg Ibuprofen (Motrin Tab) 600 mg PO Q8 PRN PRN Reason: Headache Last Admin: 07/01/18 21:39 Dose: 600 mg - Labs Labs: 07/03/18 04:20 07/03/18 04:20 - Constitutional Appears: Non-toxic, No Acute Distress - Head Exam Head Exam: NORMAL INSPECTION - Eye Exam Eye Exam: EOMI, Normal appearance, PERRL. absent: Nystagmus - ENT Exam ENT Exam: Mucous Membranes Moist - Neck Exam Neck Exam: Full ROM, Normal Inspection. absent: Tenderness, Thyromegaly - Respiratory Exam Respiratory Exam: Clear to Ausculation Bilateral, NORMAL BREATHING PATTERN. absent: Chest Wall Tenderness - Cardiovascular Exam Cardiovascular Exam: REGULAR RHYTHM, +S1, +S2. absent: Tachycardia - GI/Abdominal Exam GI & Abdominal Exam: Soft, Normal Bowel Sounds. absent: Distended, Tenderness - Extremities Exam Extremities Exam: absent: Calf Tenderness, Pedal Edema - Neurological Exam Neurological Exam: Alert, Awake, CN II-XII Intact, Oriented x3 - Psychiatric Exam Psychiatric exam: Normal Mood - Skin Skin Exam: Dry, Warm Assessment and Plan - Assessment and Plan (Free Text) Assessment: 38 yo female admitted due to chest pain and cerebellar mass noted on brain MRI Plan: - VSS - asymptomatic - Cardio consulted, input appreciated - troponin x3 negative - Neurology consulted, recs appreciated - Pending Neurosurgical eval - continue pain management - continue ASA - continue rest of plan as ordered Case discussed with Dr Ansari. <Chirag Ansari - Last Filed: 07/04/18 16:46> Objective - Vital Signs/Intake and Output Vital Signs (last 24 hours): Temp Pulse Resp BP Pulse Ox 97.9 F 80 18 119/78 98 07/03/18 12:00 07/03/18 12:00 07/03/18 12:00 07/03/18 12:00 07/03/18 12:00 - Labs Labs: 07/03/18 04:20 07/03/18 04:20 Assessment and Plan - Assessment and Plan (Free Text) Assessment: Patient was personally seen and examined by me in rounds with residents. Available labs and diagnostic data reviewed. Case, Patient's condition and management plan discussed with residents in rounds. Agree with resident's progress note. Plan: As ordered.
--- NOTE | 2018-07-03 10:58 | CP.PCM.CON ---
History of Present Illness - History of Present Illness History of Present Illness: Neurology Consultation Note Consultation Requested by Dr. Ansari Ms. Rajput is a 38 y/o female with no PMHx. She initially presented to the ED on 07/01/18 for evaluation of chest pain and dizziness on and off x4 days. She has recently had 2 prior ED visits for the same complaints. Non-contrast CT head done on 06/29/18 was initially reported to the pt as normal, though she was called back the next day for abnormal findings on the final read of the CT head report. She then returned to the ED on 06/30/2018 and had a repeat CT head with IV contrast, which was also initially reported to her as normal, though again she was called back on 07/01/18 morning for abnormal findings on the final report. Today when I saw the pt, she stated that her chest pain and dizziness have resolved. She states that she feels "back to normal" today. Since her symptoms began last week, she admitted to me that she felt weakness to BUE that lasted a short while, as well as a mild h/a. She has not had recurrence of these symptoms since then. 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 Currently she has no h/a, dizziness, visual changes, ear pain/tinnitus, chest pain, palpitations, sob, cough, abd pain, n/v/d, paresthesias, fever/chills, change in appetite/weight. Neurology has been consulted to assist in the management of this pt. Review of Systems - Constitutional Constitutional: absent: Anorexia, Chills, Daytime Sleepiness, Excessive S weating, Fatigue, Fever, Frequent Falls, Headache, Increased Appetite, Lethargy, Malaise, Night Sweats, Snoring, Sleep Apnea, Weight Gain, Weight Loss, Weakness, Other - EENT Eyes: absent: Blind Spots, Blurred Vision, Change in Vision, Decreased Night Vision, Diplopia, Discharge, Dry Eye, Exophthalmos, Floaters, Irritation, Itchy Eyes, Loss of Peripheral Vision, Pain, Photophobia, Requires Corrective Lenses, Sees Flashes, Spots in Vision, Tunnel Vision, Other Visual Disturbances, Loss of Vision, Other Ears: absent: Decreased Hearing, Ear Discharge, Ear Pain, Tinnitus, Abnormal Hearing, Disequilibrium, Dizziness, Other Nose/Mouth/Throat: absent: Epistaxis, Nasal Congestion, Nasal Discharge, Nasal Obstruction, Nasal Trauma, Nose Pain, Post Nasal Drip, Sinus Pain, Sinus Pressure, Bleeding Gums, Change in Voice, Dental Pain, Dry Mouth, Dysphagia, Halitosis, Hoarsness, Lip Swelling, Mouth Lesions, Mouth Pain, Odynophagia, Sore Throat, Throat Swelling, Tongue Swelling, Facial Pain, Neck Pain, Neck Mass, Other - Breasts Breasts: absent: Change in Shape, Mass, Pain, Nipple Discharge, Nipple Inversion, Skin Changes, Swelling, Other - Cardiovascular Cardiovascular: absent: Acrocyanosis, Chest Pain, Chest Pain at Rest, Chest Pain with Activity, Claudication, Diaphoresis, Dyspnea, Dyspnea on Exertion, Edema, Irregular Heart Rhythm, Pain Radiating to Arm/Neck/Jaw, Leg Edema, Leg Ulcers, Lightheadedness, Orthopnea, Palpitations, Paroxysmal Nocturnal Dyspnea, Pedal Edema, Radiating Pain, Rapid Heart Rate, Slow Heart Rate, Syncope, Other - Respiratory Respiratory: absent: Cough, Dyspnea, Hemoptysis, Dyspnea on Exertion, Wheezing, Snoring, Stridor, Pain on Inspiration, Chest Congestion, Excessive Mucous Production, Change in Mucous Color, Pain with Coughing, Other - Gastrointestinal Gastrointestinal: absent: Abdominal Pain, Belching, Bloating, Change in Bowel Habits, Change in Stool Character, Coffee Ground Emesis, Constipation, Cramping, Diarrhea, Dyspepsia, Dysphagia, Early Satiety, Excessive Flatus, Fecal Incontinence, Heartburn, Hematemesis, Hematochezia, Loose Stools, Melena, Nausea, Odynophagia, Temesmus, Vomiting, Other - Genitourinary Genitourinary: absent: Change in Urinary Stream, Difficulty Urinating, Dysuria, Flank Pain, Hematuria, Pyuria, Nocturia, Urinary Incontinence, Urinary F requency, Urinary Hesitance, Urinary Urgency, Voiding Freq/Small Amts, Freq UTI, Hx Renal/Bladder Calculi, Hx /Renal Surgery, Bladder Distension, Other - Reproductive: Female Reproductive:Female: absent: Amenorrhea, Amenorrhea/ Control, Currently Menstual, Cycle <21 Days, Cycle >35 Days, Cycle Variable, Menses 1-7 Days, Menses >/= 8 Days, Menses Variable, Cycle > 4 Weeks Between, No Menses for 6 Months, Heavy Menses, Light Menses, Normal Menses, Spotting Between Cycles, S/P Hysterectomy, Menopausal, Post Menopausal, Premenarche, Abnormal Vaginal Bl eeding, Dysmenorrhea, Dyspareunia, Genital Lesions, Genital Pruritis, Pelvic Pain, Prolapse Symptoms, Sexual Dysfunction, Vaginal Discharge, Vaginal Dryness, Vaginal Odor, Vaginal Pruritis, Other - Menstruation Menstruation: absent: Amenorrhea, Amenorrhea/ Control, Currently Menstual, Cycle <21 Days, Cycle >35 Days, Cycle Variable, Menses 1-7 Days, Menses >/= 8 Days, Menses Variable, Cycle > 4 Weeks Between, No Menses for 6 Months, Heavy Menses, Light Menses, Normal Menses, Spotting Between Cycles, S/P Hysterectomy, Menopausal, Post Menopausal, Premenarche, Abnormal Vaginal Bleeding, Dysmenorrhea, Other - Musculoskeletal Musculoskeletal: absent: Abnormal Gait, Arthralgias, Atrophy, Back Pain, Deformity, Joint Swelling, Limited Range of Motion, Loss of Height, Muscle Cramps, Muscle Weakness, Myalgias, Neck Pain, Numbness, Radiating Pain into Limb, Stiffness, Tingling, Other - Integumentary Integumentary: absent: Acne, Alopecia, Bleeding Lesions, Change in Hair, Change in Nails, Change in Pigmentation, Changing Lesions, Dry Skin, Erythema, Furuncle, Hirsutism, Lesions, New Lesions, Non-Healing Lesions, Photosensitivity, Pruritus, Rash, Skin Pain, Skin Ulcer, Sores, Striae, Swelling, Unusual Bruising, Wounds, Jaundice, Other - Neurological Neurological: absent: Abnormal Gait, Abnormal Hearing, Abnormal Movements, Abnormal Speech, Behavioral Changes, Burning Sensations, Confusion, Convulsions, Disequilibrium, Dizziness, Numbness, Focal Weakness, Frequent Falls, Headaches, Lack of Coordination, Loss of Vision, Memory Loss, Paresthesias, Radicular Pain, Restless Legs, Sensory Deficit, Syncope, Tingling, Tremor, Vertigo, Weakness, Other Visual Disturbances, Other - Psychiatric Psychiatric: absent: Abnormal Sleep Pattern, Anhedonia, Anxiety, Auditory Hallucinations, Behavioral Changes, Change in Appetite, Change in Libido, Confusion, Depression, Difficulty Concentrating, Hallucinations, Homicidal Ideation, Hopelessness, Irritability, Memory Loss, Mood Swings, Panic Attacks, Paranoia, Suicidal Ideation, Visual Hallucinations, Tactile Hallucinations, Other - Endocrine Endocrine: absent: Change in Body Appearance, Change in Libido, Cold Intolorance, Deepening of Voice, Excessive Sweating, Fatigue, Flushing, Heat Intolorance, Increase in Ring/Shoe/Hat Size, Palpitations, Polydipsia, Polyphagia, Polyuria, Other - Hematologic/Lymphatic Hematologic: absent: Easy Bleeding, Easy Bruising, Lymphadenopathy, Other Past Patient History - Infectious Disease Hx of Infectious Diseases: None - Tetanus Immunizations Tetanus Immunization: Unknown - Past Medical History & Family History Past Medical History?: No Pertinent Family History: Parents both living; father has DM and HTN; mother has HTN. 1 paternal cousin with cancer, though pt cannot recall specifically what type. 1 maternal aunt from brain aneurysm at age 40. Pt's son has autism--age 17. 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 - INTEGUMENTARY Hx Dermatological Problems: No - MUSCULOSKELETAL/RHEUMATOLOGICAL Hx Musculoskeletal Disorders: No Hx Falls: No - GASTROINTESTINAL Hx Gastrointestinal Disorders: No - GENITOURINARY/GYNECOLOGICAL Hx Genitourinary Disorders: No - PSYCHIATRIC Hx Psychophysiologic Disorder: No Hx Substance Use: No - SURGICAL HISTORY Hx Surgeries: No - ANESTHESIA Hx Anesthesia: No Meds Home Medications: Home Medication List Medication Instructions Recorded Confirmed Type Aspirin 325 mg PO DAILY tab 07/01/18 Rx Allergies/Adverse Reactions: Allergies Allergy/AdvReac Type Severity Reaction Status Date / Time Penicillins Allergy ITCHING Verified 07/01/18 18:44 codeine AdvReac FATIGUE Verified 07/01/18 18:44 - Medications Medications: Current Medications Aspirin (Aspirin) 325 mg PO DAILY [facility] Last Admin: 07/03/18 08:20 Dose: 325 mg Enoxaparin Sodium (Lovenox) 40 mg SC DAILY [facility]; Protocol Last Admin: 07/03/18 08:22 Dose: Not Given Famotidine (Pepcid) 20 mg PO BID [facility] Last Admin: 07/03/18 08:18 Dose: 20 mg Ibuprofen (Motrin Tab) 600 mg PO Q8 PRN PRN Reason: Headache Last Admin: 07/01/18 21:39 Dose: 600 mg Physical Exam - Constitutional Appears: Well, Non-toxic, No Acute Distress - Head Exam Head Exam: ATRAUMATIC, NORMAL INSPECTION, NORMOCEPHALIC - Eye Exam Eye Exam: EOMI, Normal appearance, PERRL. absent: Nystagmus Pupil Exam: NORMAL ACCOMODATION, PERRL - ENT Exam ENT Exam: Mucous Membranes Moist, Normal Exam - Neck Exam Neck exam: Positive for: Full Rom, Normal Inspection - Respiratory Exam Respiratory Exam: NORMAL BREATHING PATTERN. absent: Respiratory Distress - Cardiovascular Exam Cardiovascular Exam: REGULAR RHYTHM. absent: Tachycardia - GI/Abdominal Exam GI & Abdominal Exam: Soft. absent: Distended, Tenderness - Extremities Exam Extremities exam: Positive for: full ROM, normal inspection. Negative for: calf tenderness, pedal edema - Back Exam Back exam: FULL ROM, NORMAL INSPECTION - Neurological Exam Neurological exam: Alert, CN II-XII Intact, Normal Gait, Oriented x3, Reflexes Normal Additional comments: Neuro exam is unremarkable, no focal motor or sensory deficits noted. Gait observed by me and is steady; no ataxia. No tremors/abnormal movements. - Psychiatric Exam Psychiatric exam: Normal Affect, Normal Mood - Skin Skin Exam: Dry, Intact, Normal Color, Warm Results - Vital Signs Recent Vital Signs: Last Vital Signs Temp 98.1 F 07/03/18 07:55 Pulse 84 07/03/18 07:55 Resp 18 07/03/18 07:55 BP 124/85 07/03/18 07:55 Pulse Ox 98 07/03/18 07:55 - Labs Result Diagrams: 07/03/18 04:20 07/03/18 04:20 Labs: Laboratory Results - last 24 hr 07/02/18 07/02/18 07/02/18 05:15 11:10 19:05 WBC RBC Hgb Hct MCV MCH MCHC RDW Plt Count Sodium Potassium Chloride Carbon Dioxide Anion Gap BUN Creatinine Est GFR ( Amer) Est GFR (Non-Af Amer) Random Glucose Hemoglobin A1c 5.8 Calcium Total Bilirubin AST ALT Alkaline Phosphatase Troponin I < 0.0120 < 0.0120 Total Protein Albumin Globulin Albumin/Globulin Ratio 07/03/18 07/03/18 04:20 04:20 WBC 8.1 RBC 4.34 Hgb 13.2 Hct 39.6 MCV 91.2 MCH 30.4 MCHC 33.4 RDW 13.2 Plt Count 319 Sodium 137 Potassium 4.2 Chloride 102 Carbon Dioxide 25 Anion Gap 14 BUN 11 Creatinine 0.6 L Est GFR ( Amer) > 60 Est GFR (Non-Af Amer) > 60 Random Glucose 87 Hemoglobin A1c Calcium 8.9 Total Bilirubin 0.2 AST 20 ALT 27 Alkaline Phosphatase 63 Troponin I Total Protein 7.1 Albumin 4.0 Globulin 3.1 Albumin/Globulin Ratio 1.3 Assessment & Plan (1) Brain mass Assessment and Plan: Imaging reviewed: -Brain MRI (07/01/18): A 2.0 cm right cerebellar mass identified without restricted diffusion or contrast enhancement in a pattern that is suggestive of 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 There are additional punctate long TR hyperintensities scattered infrequently at the bilateral frontal lobes with remaining white matter normal in signal throughout the brain otherwise. Consider potential tumefactive demyelination as the differential diagnosis. -CT Head with and without contrast (06/30/18): Nonenhancing but persistent low- density lesion at the right cerebellum is stable at 1.9 cm greatest dimension. Differential diagnosis is discussed above and is broad and includes both vasogenic and cytotoxic etiologies and follow-up brain MRI with and without contrast is advised when feasible. Discordant with preliminary report from [facility] which does not describe lesion. Preliminary report provided by [facility], 06/30/2018, 7:12 p.m. -CT Head without contrast (06/29/18): 2.0 cm lucency right cerebral hemisphere is identified laterally which is indeterminate for cytotoxic versus vasogenic etiologies and follow-up brain MRI is advised with and without contrast for added characterization. Discordant preliminary report from [facility] report which does not describe this finding dated 06/29/2018, 11:06 p.m. -Neurosurgery consulted, will f/u with recommendations. -Fall precautions 2/2 dizziness. -I had a lengthy discussion with the pt regarding her neuro-imaging results. I answered all concerns and questions that she had. She is aware of the neurosurgery consult pending and further management/treatment will depend on what the neurosurgery team recommends. -Notify neuro team of any acute change in pt's condition. Melanie Chappell DNP, HHA d/w Dr. Mccall Status: Acute - Date & Time Date: 07/03/18 Time: 10:55
[2018-07-03 12:04] VITALS: BP 119/78; PULSE 80; TEMP 97.9
--- NOTE | 2018-07-03 18:17 | CP.PCM.PN ---
Subjective - Date & Time of Evaluation Date of Evaluation: 07/03/18 Time of Evaluation: 07:45 - Subjective Subjective: Yoselin Mojica, PGY1 Progress Note for Dr. Aguillon: Pt was seen and examined this AM at bedside. Pt states that she has not had a bout of chest pain since we discussed things yesterday. Pt reports that she believes the chest pains to be related to her anxiety. Pt had no acute overnight events and at this time has no acute complaints. Objective - Vital Signs/Intake and Output Vital Signs (last 24 hours): Temp Pulse Resp BP Pulse Ox 97.9 F 80 18 119/78 98 07/03/18 12:00 07/03/18 12:00 07/03/18 12:00 07/03/18 12:00 07/03/18 12:00 - Labs Labs: 07/03/18 04:20 07/03/18 04:20 - Constitutional Appears: Non-toxic, No Acute Distress - Head Exam Head Exam: ATRAUMATIC, NORMAL INSPECTION, NORMOCEPHALIC - Eye Exam Eye Exam: EOMI, Normal appearance, PERRL - Respiratory Exam Respiratory Exam: Clear to Auscultation Bilateral, NORMAL BREATHING PATTERN. absent: Accessory Muscle Use, Rales, Rhonchi, Wheezes, Respiratory Distress, Stridor - Cardiovascular Exam Cardiovascular Exam: RRR, +S1, +S2. absent: Gallop, Rubs - GI/Abdominal Exam GI & Abdominal Exam: Normal Bowel Sounds, Soft. absent: Distended, Firm, Guarding, Tenderness - Extremities Exam Extremities exam: Positive for: normal capillary refill, normal inspection, pedal pulses present. Negative for: calf tenderness, pedal edema - Back Exam Back exam: NORMAL INSPECTION. absent: CVA tenderness (L), CVA tenderness (R) - Neurological Exam Neurological exam: Alert, Oriented x3 - Psychiatric Exam Psychiatric exam: Normal Affect, Normal Mood - Skin Skin Exam: Dry, Intact, Normal Color Assessment & Plan - Assessment and Plan (Free Text) Assessment: Pt is a 38 yo F with no significant Pmhx who presented for dizziness and chest pain. Cardiac team is consulted for the eval of chest pain. Plan: Non-Anginal Chest pain: - Pts CP is non-exertional, and is relieved by removal from stressful situations. Per rachelle lopes this CP is non-anginal - Given the pts young age and negative family hx of premature cardiac events, as well as normal menses and no smoking hx pt is currently at low risk for cardiac events - Pts latest lipid panel is significant for CHol of 205, LDL of 152 and HDL of 34 - Pt is asymptomatic at this time.
--- NOTE | 2018-07-04 06:48 | CON ---
DATE: 07/03/2018 LOCATION: [facility] (Formerly [facility]). HISTORY OF PRESENT ILLNESS: This is a 38-year-old female who came to the emergency room complaining of several days of chest pain with numbness in both arms and dizziness. She reported that this spontaneously abated. She had several episodes such as this in the past; however, she underwent an MRI of the brain which showed a small right cerebellar lesion approximately 1 cm in diameter, nonenhancing, without any mass effect. She has no complaints at this point and she had no complaints referable to her EMS DIRECTOR prior to this event. At this point, I have reviewed the medical record including her past medical history which is significant for hypertension. PHYSICAL EXAMINATION: GENERAL: Her examination at this point finds her awake, alert and oriented. HEENT: Pupils are equal. EOMs are full. No nystagmus. NEUROLOGIC: Cranial nerves intact. Motor exam is 5/5. No sensory deficits. No reflex changes. No dysmetria movement. ASSESSMENT AND PLAN: At this point, it is very unclear what exactly this small lesion is. I think that at this point I would recommend that we follow this, get a repeat MRI with gadolinium in six weeks, and I will see her in the office to follow. I do not think a biopsy at this point is beneficial. Sung Glasgow MD
== END 2018-07-03 15:00 | disposition home or self-care (01) ==
LOC: H.ER 12:40 → H.ERHOLD 13:24 → H.TEL 16:14
PROVIDERS: ADMIT Internal Medicine; ATTEND Internal Medicine
DX: R07.9 Chest pain, unspecified (principal); Z88.6 Allergy status to analgesic agent; Z88.0 Allergy status to penicillin; I10 Essential (primary) hypertension; Z79.82 Long term (current) use of aspirin; G93.9 Disorder of brain, unspecified
CPT/HCPCS: 36415; 70553; 71275; 80048; 80053; 80061; 81025; 82607; 83036; 84436; 84443; 84480; 84484; 85025; 85027; 93005; 99283; A9579; G0378; Q9967